=== PATIENT | female | born 1955 | race Caucasian/White ===

== ENCOUNTER → 2016-08-21 | Outpatient (CLI) | payer OTHER ==
[~2016-08-21] VITALS: Ht 157.5 cm; Wt 109.8 kg
[~2016-08-21] MED LIST: ADVIL MIGRAINE200 MG PO; AMPICILLIN 22 G/VIAL IV; ASPI325T6 PO; BENICAR HCT 251 TAB PO; NATURE'S BLE1000 MCG PO; NORCO 325 MG-51 TAB PO; ONE-A-DAY WOMEN1 TAB PO; OSCAL 500 TAB500 MG PO; PREDNISONE20 MG PO; PRILOSEC10 MG PO; PRINCIPEN500 MG PO; TYLENOL PM EXTR1 TA1 PO; VALIUM 5MG T5 MG/TAB PO
[2016-08-21 14:17] VITALS: BP 142/65; PULSE 97
[2016-08-21 14:44] VITALS: BP 142/65; PULSE 97
== END ==
LOC: LIGHT 11:27
DX: E88.81 Metabolic syndrome and other insulin resistance (principal); E66.01 Morbid (severe) obesity due to excess calories; Z68.41 Body mass index [BMI] 40.0-44.9, adult; I10 Essential (primary) hypertension

== ENCOUNTER → 2016-11-03 | Outpatient (CLI) | payer OTHER ==
[~2016-11-03] VITALS: Ht 157.5 cm; Wt 122.9 kg
[2016-11-03 16:07] VITALS: BP 138/70; PULSE 80
== END ==
LOC: LIGHT 07-31 13:35
DX: E88.81 Metabolic syndrome and other insulin resistance (principal); E66.01 Morbid (severe) obesity due to excess calories; Z68.42 Body mass index [BMI] 45.0-49.9, adult; I10 Essential (primary) hypertension; Z90.710 Acquired absence of both cervix and uterus

== ENCOUNTER → 2016-11-25 | Outpatient (CLI) | payer OTHER | LOC: LIGHT 11-24 08:48 | DX: E66.01 Morbid (severe) obesity due to excess calories (principal); E88.81 Metabolic syndrome and other insulin resistance; I10 Essential (primary) hypertension; M15.9 Polyosteoarthritis, unspecified ==

== ENCOUNTER 2016-12-10 06:56 | Observation (INO) | payer OTHER ==
[~2016-12-10] VITALS: Ht 157.5 cm; Wt 117.8 kg
[2016-12-10] VITALS (10 sets, daily range): BP systolic 107–135; BP diastolic 48–75; PULSE 71–100; TEMP 97.7–99.1
[~2016-12-10 06:56] MED LIST changes: -NATURE'S BLE1000 MCG PO; -ONE-A-DAY WOMEN1 TAB PO; -OSCAL 500 TAB500 MG PO; -PRILOSEC10 MG PO
[2016-12-11 01:56] VITALS: BP 126/56; PULSE 91; TEMP 98.6
[2016-12-11 05:08] VITALS: BP 124/54; PULSE 77; TEMP 98.2
[2016-12-11 10:32] VITALS: BP 142/71; PULSE 79; TEMP 97.3
[2016-12-11 13:49] VITALS: BP 150/66; PULSE 69; TEMP 97.4
[2016-12-15] MEDS ORDERED: ONE-A-DAY WOMEN1 TAB PO (13:00)
[2016-12-15] MEDS ORDERED: OSCAL 500 TAB500 MG PO (13:00)
[2016-12-15] MEDS ORDERED: NATURE'S BLE1000 MCG PO (13:01)
[2017-01-26] MEDS ORDERED: PRILOSEC10 MG PO (15:18)
== END 2016-12-11 17:05 | disposition home or self-care (01) ==
LOC: SDCO 06:56 → JCC 11:00 → SDCO 12-11 08:30 → JCC 12-11 08:30
DX: E66.01 Morbid (severe) obesity due to excess calories (principal); Z68.42 Body mass index [BMI] 45.0-49.9, adult; I10 Essential (primary) hypertension; M16.11 Unilateral primary osteoarthritis, right hip
CPT/HCPCS: OP; G0378; J0330; J0694; J1100; J1885; J2270; J2405; J2704; J2710; J3010; J7042; J7120

== ENCOUNTER → 2016-12-15 | Outpatient (CLI) | payer OTHER ==
[~2016-12-15] VITALS: Ht 157.5 cm; Wt 115.0 kg
[~2016-12-15] MED LIST changes: +NATURE'S BLE1000 MCG PO; +ONE-A-DAY WOMEN1 TAB PO; +OSCAL 500 TAB500 MG PO; +PRILOSEC10 MG PO
[2016-12-15 13:02] VITALS: BP 123/64; PULSE 98
== END ==
LOC: LIGHT 12:55
DX: Z02.89 Encounter for other administrative examinations (principal)

== ENCOUNTER → 2017-01-26 | Outpatient (CLI) | payer OTHER ==
[~2017-01-26] VITALS: Ht 157.5 cm; Wt 108.0 kg
[2017-01-26 15:19] VITALS: BP 117/62; PULSE 79
== END ==
LOC: LIGHT 11:41
DX: E88.81 Metabolic syndrome and other insulin resistance (principal); E66.01 Morbid (severe) obesity due to excess calories; Z68.41 Body mass index [BMI] 40.0-44.9, adult; Z71.3 Dietary counseling and surveillance; I10 Essential (primary) hypertension

== ENCOUNTER → 2017-03-23 | Outpatient (CLI) | payer OTHER ==
[~2017-03-23] VITALS: Ht 157.5 cm; Wt 104.6 kg
[2017-03-23 13:48] VITALS: BP 120/60; PULSE 64
== END ==
LOC: LIGHT 13:41
DX: E88.81 Metabolic syndrome and other insulin resistance (principal); E66.01 Morbid (severe) obesity due to excess calories; Z68.41 Body mass index [BMI] 40.0-44.9, adult; Z71.3 Dietary counseling and surveillance; I10 Essential (primary) hypertension

== ENCOUNTER → 2017-06-29 | Outpatient (CLI) | payer OTHER ==
[~2017-06-29] VITALS: Ht 157.5 cm; Wt 100.2 kg
[2017-06-29 13:51] VITALS: BP 126/60; PULSE 84
== END ==
LOC: LIGHT 08:30
DX: E88.81 Metabolic syndrome and other insulin resistance (principal); E66.01 Morbid (severe) obesity due to excess calories; Z68.41 Body mass index [BMI] 40.0-44.9, adult; Z71.3 Dietary counseling and surveillance; I10 Essential (primary) hypertension

== ENCOUNTER → 2017-12-14 | Outpatient (CLI) | payer OTHER ==
[~2017-12-14] VITALS: Ht 157.5 cm; Wt 100.5 kg
[2017-12-14 13:54] VITALS: BP 120/56; PULSE 88
== END ==
LOC: LIGHT 08:43
DX: Z98.84 Bariatric surgery status (principal); R73.01 Impaired fasting glucose; E66.01 Morbid (severe) obesity due to excess calories; Z68.41 Body mass index [BMI] 40.0-44.9, adult; Z71.3 Dietary counseling and surveillance; I10 Essential (primary) hypertension
CPT/HCPCS: G0463

== ENCOUNTER 2020-07-12 02:19 | Emergency (ER) | payer MEDICARE ==
[~2020-07-12] VITALS: Ht 157.5 cm; Wt 109.1 kg
[2020-07-12 02:28] VITALS: TEMP 98.3
[2020-07-12] MEDS ORDERED: LIPITOR 10MG10 MG PO (02:41)
[2020-07-12 02:48] VITALS: BP 156/94; PULSE 82
== END 2020-07-12 02:52 | disposition home or self-care (01) ==
LOC: COL.ER 02:19
DX: M79.604 Pain in right leg (principal); M25.551 Pain in right hip; Z88.7 Allergy status to serum and vaccine